=== PATIENT | male | born 1990 | race Caucasian/White ===

== ENCOUNTER 2017-08-17 00:01 | Emergency (ER) | payer SELFPAY ==
[~2017-08-17] VITALS: Ht 172.7 cm; Wt 65.8 kg
[2017-08-17] MEDS ORDERED: KLONOPIN1 MG ORAL (00:07)
[2017-08-17 00:15] VITALS: BP 122/78
[2017-08-17 01:15] VITALS: BP 118/77
--- NOTE | 2017-08-17 01:24 | Emergency Room Report ---
History of Present Illness General Chief Complaint: Substance Abuse Source: Patient, Family Member, EMS Present Illness HPI Is a 26-year-old male presents with chief complaint of drug overdose. History is from EMS and his . There were getting ready for bed when he went to the bathroom first. After 5-10 minutes when he was not responding, his went to the bathroom. She found him on the floor unresponsive. He had a bag with substances in it. He was not breathing and was very pale. She called 911. He had a pulse. On arrival EMS gave him Narcan IM. He did not wake up with this but did breathe better. EMS. They gave him Narcan IV and now he is awake. He denies any suicidal thoughts homicidal thought. Admit to using heroin along with Klonopin and alcohol. Said he never overdosed before. Allergies: Coded Allergies: No Known Allergies (Unverified , 08/17/17) Patient History Past Medical History: see triage record, old chart reviewed Past Surgical History: none Pertinent Family History: none Social History: Reports: smoking, alcohol use, drug use Immunizations: UTD Reviewed Nursing Documentation: PMH: Agreed; PSxH: Agreed Nursing Documentation-PMH Past Medical History: No History, Except For History Of Psychiatric Problem: Yes - anxiety Review of Systems Eye: Denies: eye pain, blurred vision ENT: Denies: ear pain, nose congestion, throat swelling Respiratory: Denies: cough, shortness of breath Cardiovascular: Denies: chest pain, palpitations Gastrointestinal: Denies: abdominal pain, diarrhea, nausea, vomiting Musculoskeletal: Denies: back pain, joint pain Skin: Denies: rash Neurological: Denies: headache, numbness Endocrine: Denies: increased thirst, increased urine Hematologic/Lymphatic: Denies: easy bruising All Other Systems: negative except mentioned in HPI Physical Exam Vital Signs Date Time Temp Pulse Resp B/P (MAP) Pulse Ox O2 Delivery O2 Flow Rate FiO2 08/17/17 00:03 97.7 107 16 122/78 100 Room Air 97.7 vitals with tachycardia Sp02 EP Interpretation: reviewed, normal General Appearance: well appearing, no apparent distress, alert Head: normocephalic, atraumatic Eyes: bilateral eye PERRL, bilateral eye EOMI ENT: hearing grossly normal, normal pharynx Neck: full range of motion, supple, no meningismus Respiratory: chest non-tender, lungs clear, normal breath sounds Cardiovascular #1: regular rate, rhythm, no murmur Gastrointestinal: normal bowel sounds, non tender, no mass, no organomegaly, no bruit, non-distended Musculoskeletal: back normal, gait/station normal, normal range of motion Psychiatric: mood/affect normal Skin: warm/dry Medical Decision Making Diagnostic Impression: Primary Impression: Substance abuse Additional Impression: Accidental heroin overdose Qualified Codes: T40.1X1A - Poisoning by heroin, accidental (unintentional), initial encounter ER Course Patient with an opiate overdose. No suicidal thoughts or homicidal thought. His been awake and talking for over an hour now. No criteria for 5150. We'll discharge home. Chest X-Ray Diagnostic Results Chest X-Ray Diagnostic Results : Chest X-Ray Ordered: Yes # of Views/Limited/Complete: 1 View Indication: Shortness of Breath EP Interpretation: Yes Interpretation: no consolidation, no effusion, no pneumothorax, no acute cardiopulmonary disease Impression: No acute disease Electronically Signed by: Juvenal Fish MD Last Vital Signs Date Time Temp Pulse Resp B/P (MAP) Pulse Ox O2 Delivery O2 Flow Rate FiO2 08/17/17 00:03 97.7 107 16 122/78 100 Room Air 97.7 Status: improved Disposition: HOME, SELF-CARE Condition: Stable Referrals: NOT CHOSEN LORRAINE/,REFERRING (PCP) Patient Instructions: Substance Use Disorder Additional Instructions: Abstain from drugs and alcohol. Follow-up with rehabilitation. Follow-up with your doctor in a week. Return if worse. JUVENAL FISH M.D. Aug 17, 2017 01:24
--- NOTE | 2017-08-17 01:33 | Diagnostic Imaging Report ---
EXAM: XR Chest, 1 View CLINICAL HISTORY: SOB TECHNIQUE: Frontal view of the chest. COMPARISON: No relevant prior studies available. FINDINGS: Lungs: peribronchial thickening without infiltrate. Pleural space: Unremarkable. No pneumothorax. Heart: Unremarkable. No cardiomegaly. Mediastinum: Unremarkable. Bones/joints: Unremarkable. IMPRESSION: peribronchial thickening without infiltrate.
[2017-08-17 01:45] VITALS: BP 118/77
== END 2017-08-17 01:45 | disposition home or self-care (01) ==
LOC: EDBD 00:01 → EMR 01:16
DX: T40.1X1A Poisoning by heroin, accidental (unintentional), initial encounter (principal); F19.10 Other psychoactive substance abuse, uncomplicated; F17.200 Nicotine dependence, unspecified, uncomplicated; F41.9 Anxiety disorder, unspecified
CPT/HCPCS: 71045; 99283

== ENCOUNTER 2018-01-09 23:12 | Emergency (ER) | payer BC ==
[~2018-01-09] VITALS: Ht 172.7 cm; Wt 65.8 kg
[~2018-01-09 23:12] MED LIST: KLONOPIN1 MG ORAL
[2018-01-09] MEDS ORDERED: NKM (23:16)
[2018-01-09 23:34] VITALS: BP 124/73
[2018-01-10 00:01] LABS: BASOPHILS % (AUTO) 1.3 % (0.0-2.0); EOSINOPHILS % (AUTO) 1.4 % (0.0-3.0); LYMPHOCYTES % (AUTO) 41.8 % (20.0-45.0); MEAN CORPUSCULAR VOLUME 82 FL (80-99); MONOCYTES % (AUTO) 8.2 % (1.0-10.0); NEUTROPHILS % (AUTO) 47.3 % (45.0-75.0); PLATELET COUNT 216 K/UL (150-450); RED BLOOD COUNT 5.26 M/UL (4.70-6.10); RED CELL DISTRIBUTION WIDTH 9.3 % (11.6-14.8); WHITE BLOOD COUNT 6.8 K/UL (4.8-10.8)
[2018-01-10 00:13] LABS: ANION GAP 10 mmol/L (5-15); BLOOD UREA NITROGEN 16 mg/dL (7-18); CALCIUM 9.1 MG/DL (8.5-10.1); CARBON DIOXIDE 31 MMOL/L (21-32); CHLORIDE 99 MMOL/L (98-107); POTASSIUM 3.1 MMOL/L (3.5-5.1); SODIUM 140 MMOL/L (136-145)
[2018-01-10 00:17] LABS: ALANINE AMINOTRANSFERASE 23 U/L (12-78); ALBUMIN 4.1 G/DL (3.4-5.0); ALKALINE PHOSPHATASE 64 U/L (46-116); ASPARTATE AMINO TRANSFERASE 30 U/L (15-37); BILIRUBIN,TOTAL 0.6 MG/DL (0.2-1.0)
[2018-01-10 01:08] VITALS: BP 124/73
--- NOTE | 2018-01-10 02:42 | Emergency Room Report ---
History of Present Illness General Chief Complaint: Overdose Source: Patient Present Illness HPI 27-year-old male presents ED for evaluation. Brought in by EMS for reported overdose. Patient denies smoking anything but at bedside notes that patient has history of heroin abuse. Patient states he feels nauseous. Pinpoint pupils per EMS. Patient is lethargic but responsive and not given Narcan. Denies chest pain or shortness of breath. Denies try to hurt himself. No other aggravating relieving factors. Denies any other associated symptoms Allergies: Coded Allergies: No Known Allergies (Unverified , 08/17/17) Patient History Past Medical History: none Past Surgical History: none Pertinent Family History: none Social History: Reports: drug use; Denies: smoking, alcohol use Immunizations: UTD Reviewed Nursing Documentation: PMH: Agreed; PSxH: Agreed Nursing Documentation-PMH Past Medical History: No Stated History Review of Systems All Other Systems: negative except mentioned in HPI Physical Exam Vital Signs Date Time Temp Pulse Resp B/P (MAP) Pulse Ox O2 Delivery O2 Flow Rate FiO2 01/09/18 23:12 97.5 110 16 127/89 96 Room Air Sp02 EP Interpretation: reviewed, normal General Appearance: no apparent distress, GCS 15, non-toxic, lethargic Head: normocephalic Eyes: bilateral eye other - pinpoint pupils ENT: normal ENT inspection Neck: normal inspection Respiratory: chest non-tender, lungs clear, normal breath sounds, speaking full sentences Cardiovascular #1: regular rate, rhythm, no edema Gastrointestinal: normal inspection Rectal: deferred Genitourinary: no CVA tenderness Musculoskeletal: normal inspection Neurologic: other - lethargic Psychiatric: other - lethargic Skin: normal inspection Lymphatic: normal inspection Medical Decision Making Diagnostic Impression: Primary Impression: Drug overdose Qualified Codes: T50.901A - Poisoning by unspecified drugs, medicaments and biological substances, accidental (unintentional), initial encounter ER Course Hospital Course 27-year-old M presents to ED with altered mental status. pinpoint pupils, lethargic Differential diagnoses include: Psychosis, EtOH, drug abuse Clinical course patient placed on stretcher. 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 After initial history and physical ordered labs, IV fluids, zofran Labs reviewed-electrolytes okay, no leukocytosis, hemoglobin/hematocrit stable patient did not provide urine sample Patient is now awake alert oriented x3, ambulating. Admits to smoking heroin. States he feels better and wants to go home. Denies SI or HI. We'll provide referrals for substance abuse counseling. i. I feel this is a highly complex case requiring extensive working including EKG/Rhythm strip, Xray/CT/US, Blood/urine lab work, repeat exams while in ED, and administration of strong opiates/narcotics for pain control, admission to hospital or close patient follow up. Diagnosis - overdose Stable and discharged to home. Followup with PMD. Return to ED if symptoms recur or worsen Labs Test 01/09/18 23:35 White Blood Count 6.8 K/UL (4.8-10.8) Red Blood Count 5.26 M/UL (4.70-6.10) Hemoglobin 15.0 G/DL (14.2-18.0) Hematocrit 43.0 % (42.0-52.0) Mean Corpuscular Volume 82 FL (80-99) Mean Corpuscular Hemoglobin 28.5 PG (27.0-31.0) Mean Corpuscular Hemoglobin Concent 34.9 G/DL (32.0-36.0) Red Cell Distribution Width 9.3 % (11.6-14.8) Platelet Count 216 K/UL (150-450) Mean Platelet Volume 6.7 FL (6.5-10.1) Neutrophils (%) (Auto) 47.3 % (45.0-75.0) Lymphocytes (%) (Auto) 41.8 % (20.0-45.0) Monocytes (%) (Auto) 8.2 % (1.0-10.0) Eosinophils (%) (Auto) 1.4 % (0.0-3.0) Basophils (%) (Auto) 1.3 % (0.0-2.0) Sodium Level 140 MMOL/L (136-145) Potassium Level 3.1 MMOL/L (3.5-5.1) Chloride Level 99 MMOL/L (98-107) Carbon Dioxide Level 31 MMOL/L (21-32) Anion Gap 10 mmol/L (5-15) Blood Urea Nitrogen 16 mg/dL (7-18) Creatinine 1.0 MG/DL (0.55-1.30) Estimat Glomerular Filtration Rate > 60 mL/min (>60) Glucose Level 143 MG/DL (74-106) Calcium Level 9.1 MG/DL (8.5-10.1) Total Bilirubin 0.6 MG/DL (0.2-1.0) Aspartate Amino Transf (AST/SGOT) 30 U/L (15-37) Alanine Aminotransferase (ALT/SGPT) 23 U/L (12-78) Alkaline Phosphatase 64 U/L (46-116) Total Protein 8.2 G/DL (6.4-8.2) Albumin 4.1 G/DL (3.4-5.0) Globulin 4.1 g/dL Albumin/Globulin Ratio 1.0 (1.0-2.7) Salicylates Level < 0.2 ug/mL (2.8-20) Acetaminophen Level < 2 MCG/ML (10-30) Serum Alcohol < 3 mg/dL Last Vital Signs Date Time Temp Pulse Resp B/P (MAP) Pulse Ox O2 Delivery O2 Flow Rate FiO2 01/09/18 23:34 110 16 Room Air 01/09/18 23:34 97.5 124/73 100 Status: improved Disposition: HOME, SELF-CARE Condition: Stable Referrals: [facility] Patient Instructions: Substance Use Disorder Kenrick Quinonez MD Jan 10, 2018 02:42
== END 2018-01-10 01:08 | disposition home or self-care (01) ==
LOC: EDBD 23:12 → EMR 23:50
DX: T50.901D Poisoning by unspecified drugs, medicaments and biological substances, accidental (unintentional), subsequent encounter (principal); R11.0 Nausea; F11.10 Opioid abuse, uncomplicated
CPT/HCPCS: 36415; 80053; 85025; 96361; 96374; 99284; G0480; J2405; 80329